=== PATIENT | female | born 1960 | race Caucasian/White ===

== ENCOUNTER → 2021-12-29 | Day surgery (SDC) | payer OTHER ==
[2021-12-24 10:46] LABS: Protime INR 0.93
[2021-12-24 10:59] LABS: SARS-CoV-2 Antigen Rapid Res Negative (Negative)
--- NOTE | 2021-12-24 11:16 | RAD REPORT ---
EXAM DESCRIPTION: RAD - Chest Pa And Lat (2 Views) - 12/24/2021 10:33 am CLINICAL HISTORY: Pre op pending rotator cuff repair Chest pain. COMPARISON: No comparisons FINDINGS: The lungs are clear. The heart is normal in size. No displaced fractures. IMPRESSION: No acute or concerning finding suspected.
[~2021-12-29] MED LIST: EPINEPHRINE/PF 1 MG/ML AMP ONE; FENTANYL CITR 100 MCG/2 ML ONE; KETOROLAC 30 MG/ML INJ ONE; LIDOCAINE 1% MPF 5 ML VIAL ONE; LIDOCAINE 2% MPF 5 ML VIAL ONE; MIDAZOLAM HCL 2 MG/2 ML INJ ONE; NS 0.9% VIAL 10 ML ONE; NS 0.9% VIAL 20 ML ONE; ONDANSETRON 4 MG/2 ML VIAL ONE; Phenylephrine HCl 10 MG/ML 1 ML VIAL ONE; ROCURONIUM 50 MG/5 ML VIAL IV ONE; ROPLVACAINE HCL 40 ML ONE; dexAMETHasone 10 MG/ML VIAL ONE; propofoL 200 MG/20 ML VIAL IV ONE
[2021-12-29] MEDS: Ringers Lactate 1,000 ML IV ONE ×2 (09:18→13:09)
[2021-12-29] MEDS: CEFAZOLIN 2 GM IN 0.9% NACL 2 GM/100 ML BAG ONE (11:29)
[2021-12-29] MEDS: EPINEPHRINE/PF 1 MG/ML AMP ONE (12:16)
--- NOTE | 2021-12-29 14:19 | P.BOP ---
Preoperative diagnosis: right shoulder rotator cuff repair, biceps tendinitis, impingement syndrome Postoperative diagnosis: same Primary procedure: right shoulder arthroscopic rotator cuff repair with subscapularis repair Secondary procedure: right shoulder arthroscopic biceps tenotomy Other procedure(s): right shoulder arthroscopic subacromial decompression Manager Home: NONE,NONE Estimated blood loss: 10 cc Specimen: none Findings: see dictation Anesthesia: General Implants: 1- 5.5 mm Arthrex corkscrew, 3 - 4.75 mm Arthrex swivelock Fluids & blood products: per anesthesia record Transferred to: Recovery Room Condition: Good
[2021-12-29 14:58] VITALS: O2SAT 96
--- NOTE | 2021-12-29 14:58 | RAD REPORT ---
EXAM DESCRIPTION: RAD - Shoulder 1 View - 12/29/2021 2:52 pm CLINICAL HISTORY: s/p RCR, SAD, biceps tenotomy COMPARISON: No comparisons FINDINGS/IMPRESSION: No acute fracture. No malalignment. Degenerative changes at the right AC joint and glenohumeral joints.
[2021-12-29 15:30] VITALS: BP 120/71; TEMP 97.9
[2021-12-29] MEDS: HYDROCODONE/APAP 7.5/325 MG TAB ONE (15:35)
--- NOTE | 2021-12-30 03:06 | OP ---
Date of Procedure: 12/29/2021 Surgeon: Tiburcio Mendoza MD Preoperative Diagnoses: 1.Right shoulder rotator cuff tear. 2.Right shoulder bicipital tenosynovitis. 3.Right shoulder impingement syndrome. Postoperative Diagnoses: 1.Right shoulder rotator cuff tear. 2.Right shoulder bicipital tenosynovitis. 3.Right shoulder impingement syndrome. 4.Right shoulder subscapularis tear. Procedure Performed: 1.Right shoulder arthroscopic rotator cuff repair with scapularis repair. 2.Right shoulder arthroscopic biceps tenotomy. 3.Right shoulder arthroscopic subacromial decompression. Anesthesia: General endotracheal. Fluids: Per Anesthesia record. Ebl: 10 cc. Complications: None. Implants: 1.One 5.5 mm Arthrex corkscrew. 2.Three 4.5 mm Arthrex SwiveLock. Indication For Procedure: Bruno is a 61-year-old female who presented to my clinic with signs, sym ptoms, and MRI findings consistent with a right shoulder rotator cuff tear, biceps tenosynovitis with tearing as well as impingement syndrome patient. I discussed with the patient at length risks and b enefits associated with operative and nonoperative treatment. She expressed understanding and electe d to proceed with operative treatment. Description Of Procedure: After informed consent was obtained, the patient was identified in the pre operative holding area. The right upper extremity was marked. The patient was brought back to the P ACU where she underwent a right-sided interscalene block performed by Anesthesia. She was then broug ht back to the operating room, transferred to the operating table in a supine fashion, placed under g eneral endotracheal anesthesia. She was placed in the beach chair position with her extremities well padded. Her right foot was then mobilized. She had full range of motion noted with no instability noted. Right upper extremity was then prepped and draped in usual sterile fashion. A time-out was i nitiated. The correct patient and procedure were confirmed and identified. The patient did receive her preoperative prophylactic antibiotics. Attention was first taken to the posterior portal positio n, a spinal needle was introduced into the shoulder and the shoulder was injected with 30 cc of lisette l saline to distend the capsule. A posterior portal was created. The arthroscope was brought in via the posterior portal position. The patient had diagnostic arthroscopy performed. The patient was n oted to have significant fraying of the biceps tendon anchor as well as a full-thickness tear of supe rior border of the subscapularis. Anterior superior lateral portal was created and a cannula was fortino freddie as well as a low anterior portal. Biceps tenotomy was performed using a meniscal biter and the b iceps tendon anchor was then debrided using the arthroscopic shaver. There was no instability over t he anterior posterior labrum. No loose bodies found within the axillary pouch. The superior border of the subscapularis was noted to be able to reduce well to the lesser tuberosity. A FiberTape sutur e was passed through the superior border of the subscapularis using a Terabitz suture passer. The murrell tures ends were then brought out through the low anterior portal and a 4.75 mm SwiveLock was loaded. A lesser tuberosity was punched and a 4.75 mm SwiveLock anchor was then used to reduce the subscapul dayanara back to the lesser tuberosity. The remaining suture limbs were then cut. Next, attention was t aken to the anterior supraspinatus and noted to have a full-thickness tear. A lateral portal was the n created. The supraspinatus was then debrided using the arthroscopic shaver as well as the greater tuberosity to create a bleeding bony bed. The arthroscope was then brought to the subacromial space and a subacromial bursectomy was performed. A 5.5 mm corkscrew was then placed for medial row fixati on just lateral to the articular surface. It was double loaded and the sutures were passed through t he supraspinatus tear in an anterior to posterior fashion and suture limbs were then tied and crisscr ossed to increase surface area of the repair. Two 4.75 mm Arthrex SwiveLock was then used for latera l row fixation and increase surface area of the repair. Suture limbs were then cut. Next, it was th en taken to the subacromial decompression. There was some significant fraying of the coracoacromial ligament. The undersurface of the acromion was debrided using arthroscopic radiofrequency ablator an d an arthroscopic gifty was then used to perform an acromioplasty and subacromial decompression was co mpleted. Arthroscopic instruments were then removed without complication. Wounds were then irrigate d thoroughly with normal saline. Subcutaneous tissue was approximated using 2-0 Vicryl. Skin was ap proximated using a 4-0 Monocryl. Sterile dressings were applied. The patient was placed in a should er immobilizer, awakened, and transferred to PACU in stable condition. Postoperative Plan: The patient will follow up next week for wound check and dressing change. She w ill begin physical therapy at 4 weeks postop per medium rotator cuff repair protocol. RENETTA/LOLITA Voice ID: [id number] Report ID: [id number]
== END ==
LOC: OR 08:46
PROVIDERS: ATTEND Orthopaedic Surgery Sports Medicine
PROC: 0RNJ4ZZ Release Right Shoulder Joint, Percutaneous Endoscopic Approach (ICD-10-PCS; 2021-12-29)
PROC: 0LM14ZZ Reattachment of Right Shoulder Tendon, Percutaneous Endoscopic Approach (ICD-10-PCS; principal; 2021-12-29 11:00)
DX: S46.011A Strain of muscle(s) and tendon(s) of the rotator cuff of right shoulder, initial encounter (principal); M75.21 Bicipital tendinitis, right shoulder; M75.41 Impingement syndrome of right shoulder; M25.511 Pain in right shoulder; I10 Essential (primary) hypertension; Z91.09 Other allergy status, other than to drugs and biological substances; Z91.010 Allergy to peanuts; Z91.013 Allergy to seafood; Z20.822 Contact with and (suspected) exposure to COVID-19
CPT/HCPCS: 36415; 71046; 73020; 85610; 85730; 87811; A4216; J0171; J0690; J1100; J2001; J2250; J2370; J2405; J2704; J2795; J3010; J7120